=== PATIENT | female | born 1945 | race Caucasian/White ===

== ENCOUNTER → 2016-10-26 | Outpatient (CLI) | payer MEDICARE | END | disposition home or self-care (01) | LOC: GMAJ 12:51 | PROVIDERS: ATTEND Family Medicine | DX: I10 Essential (primary) hypertension (principal); L29.0 Pruritus ani ==

== ENCOUNTER → 2016-11-13 | Outpatient (CLI) | payer MEDICARE ==
--- NOTE | 2016-11-19 00:33 | RAD ---
Two views right hip Reference: March 22, 2016. District: Pain in right hip impression: There is complete joint space loss of the right hip with subchondral sclerosis. No evidence of fracture at this time. The joint space loss has advanced considerably when compared to the prior study from March 22, 2016 compatible with worsening degenerative change. Electronically signed by: Jose East MD 11/13/2016 3:28 PM [facility]
== END | disposition home or self-care (01) ==
LOC: RAD 08:36
PROVIDERS: ATTEND Orthopaedic Surgery
DX: M25.551 Pain in right hip (principal)

== ENCOUNTER → 2017-04-17 | Outpatient (CLI) | payer MEDICARE | END | disposition home or self-care (01) | LOC: NC 12:47 | PROVIDERS: ATTEND Family Medicine | DX: R30.0 Dysuria (principal) ==

== ENCOUNTER → 2017-05-08 | Outpatient (CLI) | payer MEDICARE | END | disposition home or self-care (01) | LOC: NC 09:25 | PROVIDERS: ATTEND Family Medicine | DX: D51.9 Vitamin B12 deficiency anemia, unspecified (principal) ==

== ENCOUNTER → 2017-07-30 | Outpatient (CLI) | payer MEDICARE | END | disposition home or self-care (01) | LOC: GMA 10:42 | PROVIDERS: ATTEND Physician Assistant | DX: N30.00 Acute cystitis without hematuria (principal) ==

== ENCOUNTER 2018-01-12 12:58 | Emergency (ER) | payer MEDICARE ==
[2018-01-12 13:13] VITALS: BP 151/79; TEMP 96.5; O2SAT 95
[2018-01-12] MEDS ORDERED: PENICILLIN BENZATHINE 1.2 MU 1.2 MU/2 ML SYG IM ONE (13:19)
[2018-01-12] MEDS ORDERED: FLUCONAZOLE 150 MG TAB PO ONE (13:19)
[2018-01-12] MEDS ORDERED: SULFA/TRIMETH 800/160 (DS) TAB 1 EA TAB PO ONE (13:19)
--- NOTE | 2018-01-12 13:22 | ED.PDOC ---
History of Present Illness - General Chief Complaint: Skin/Abrasion/Tear Stated Complaint: red,swollen forearm Time Seen by Provider: 01/12/18 13:06 Source: patient Exam Limitations: no limitations - History of Present Illness Initial Comments: the patient is a 72-year-old female presenting to the emergency room secondary to cellulitis to the dorsal aspect of her right forearm that has been present and slightly worsening over the last week. No definite fever. It is uncomfortable to palpation. No abscess to drain. No drainage of any pus. There does not appear to be any deep tissue infection. No hindrance of movement of the joints proximal or distal. She appears to be neurovascularly intact. No rashes in other areas. Timing/Duration: 1 week Severity: moderate Improving Factors: nothing Worsening Factors: nothing Associated Symptoms: denies symptoms Allergies/Adverse Reactions: Allergies NO KNOWN ALLERGY Allergy (Unverified 09/05/12 09:52) Home Medications: Ambulatory Orders Amlodipine Besylate 10 mg PO DAILY 01/18/14 Metoprolol Succinate [Metoprolol Succinate ER] 100 mg PO DAILY 01/18/14 Valsartan-Hydrochlorothiazide [Valsartan/Hydrochlorothia 320-25 mg] 1 tab PO DAILY 01/18/14 Omeprazole [Prilosec] 40 mg PO DAILY 03/22/16 Citalopram Hydrobromide [Celexa] 40 mg PO DAILY 01/12/18 Diclofenac Sodium [Voltaren] 75 mg PO DAILY 01/12/18 Sulfa/Trimeth 800/160 (Ds) Tab [Bactrim DS Tab] 1 ea PO BID #14 tab 01/12/18 Review of Systems - Review of Systems Constitutional: States: no symptoms reported EENTM: States: no symptoms reported Respiratory: States: no symptoms reported Cardiology: States: no symptoms reported Gastrointestinal/Abdominal: States: no symptoms reported Genitourinary: States: no symptoms reported Musculoskeletal: States: no symptoms reported Skin: States: see HPI Neurological: States: no symptoms reported Endocrine: States: no symptoms reported All other Systems: No Change from Baseline Past Medical History (General) - Patient Medical History Hx Congestive Heart Failure: No Hx Hypertension: Yes Hx Diabetes: No Surgical History: Hysterectomy - Vaccination History Hx Influenza Vaccination: Yes Hx Pneumococcal Vaccination: Yes - Social History Hx Tobacco Use: Yes Family Medical History - Family History Mother Family History: Unknown Living Status: Unknown Physical Exam - Physical Exam General Appearance: Alert, Comfortable, No apparent distress Eye Exam: bilateral normal Ears, Nose, Throat: hearing grossly normal, normal ENT inspection Neck: full range of motion, supple Respiratory: no respiratory distress, no accessory muscle use Cardiovascular/Chest: normal peripheral pulses, no edema Peripheral Pulses: radial,right: 2+, radial,left: 2+ Rectal Exam: deferred Back Exam: normal inspection Extremity: no pedal edema, normal capillary refill, other - see history of present illness 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 No evidence of any abscess. No evidence of any sepsis. The patient will be covered for strep with a dose of Bicillin here and she will be placed on Bactrim for the next 7 days to cover for staph as a source. She is also being given one dose of oral Diflucan. She needs to keep herself well-hydrated. She needs to photo document the area daily to make sure that it is improving. She needs to follow up with her primary care doctor towards the end of this week for reevaluation and continuation of antibiotics if needed further. ER warnings were given for any worsening. Departure - Departure Clinical Impression: Erysipelas Disposition: Discharge to Home or Self Care Condition: Fair Departure Forms: ED Discharge - Pt. Copy, Patient Portal Self Enrollment Instructions: DI for Wound Infection Diet: regular diet Activity: increase activity as tolerated Referrals: Sea Schilling MD [Primary Care Provider] - 1-5 Days Prescriptions: Sulfa/Trimeth 800/160 (Ds) Tab [Bactrim DS Tab] 1 ea PO BID #14 tab Home Medications: Ambulatory Orders Amlodipine Besylate 10 mg PO DAILY 01/18/14 Metoprolol Succinate [Metoprolol Succinate ER] 100 mg PO DAILY 01/18/14 Valsartan-Hydrochlorothiazide [Valsartan/Hydrochlorothia 320-25 mg] 1 tab PO DAILY 01/18/14 Omeprazole [Prilosec] 40 mg PO DAILY 03/22/16 Citalopram Hydrobromide [Celexa] 40 mg PO DAILY 01/12/18 Diclofenac Sodium [Voltaren] 75 mg PO DAILY 01/12/18 Sulfa/Trimeth 800/160 (Ds) Tab [Bactrim DS Tab] 1 ea PO BID #14 tab 01/12/18 Additional Instructions: the patient's 72-year-old female emergency room with a week's worth of what appears to be a cellulitis that is clinically most consistent with an erysipela to the dorsal aspect of her right forearm. No evidence of any abscess. No evidence of any sepsis. The patient will be covered for strep with a dose of Bicillin here and she will be placed on Bactrim for the next 7 days to cover for staph as a source. She is also being given one dose of oral Diflucan. She needs to keep herself well-hydrated. She needs to photo document the area daily to make sure that it is improving. She needs to follow up with her primary care doctor towards the end of this week for reevaluation and continuation of antibiotics if needed further. ER warnings were given for any worsening.
[2018-01-12] MEDS ORDERED: FLUCONAZOLE 100 MG TAB ONE (13:24)
== END 2018-01-12 13:49 | disposition home or self-care (01) ==
LOC: ER 12:58
DX: A46 Erysipelas (principal); I10 Essential (primary) hypertension

== ENCOUNTER → 2019-03-11 | Outpatient (CLI) | payer MEDICARE ==
--- NOTE | 2019-03-17 16:28 | MAM ---
EXAM DESCRIPTION: 3D Screening BILATERAL : Digital Mammography. CLINICAL HISTORY: 73 years Female SCREEN . No complaints. No personal or family history of breast cancer. Childbirth. Postmenopausal over 20 years. HRT 5 or more years ago.. Lifetime risk of developing breast cancer (Tyrer-Cuzick model)(%): 4.6. COMPARISON: 2-D digital screening bilateral mammography 06/22/2014 at outside imaging facility. No prior reports available. TECHNIQUE: Bilateral CC and MLO projection full-field images, digital tomosynthesis mammographic technique. Bilateral digital 2-D full-field MLO images. CAD not available for tomosynthesis or 2-D images. FINDINGS: The breast parenchymal density pattern is: Scattered areas of fibroglandular density. No skin thickening or nipple retraction. The most dense fibroglandular tissues are in the retroareolar breast bilaterally. No new focal, stellate mass or density, focal asymmetry , and no suspicious microcalcifications bilaterally. Stable mammograms compared to prior study. Taking into account, differences in mammographic technique. IMPRESSION: Benign exam. BIRAD CATEGORY: 2 BENIGN FINDINGS. RECOMMENDATIONS: FOLLOW UP: Routine digital bilateral mammographic screening, one year interval from February 2019. Written communication explaining the IMPRESSION and follow-up, will be mailed to the patient and referring health care provider. The FINDINGS and the FOLLOW-UP plan were reviewed in person with the patient after the examination. According to the [employer], yearly mammograms are recommended starting at age 40 and continuing as long as a woman is in good health. Any breast change noted on a breast self-exam should be reported promptly to the patient's healthcare provider. Breast MRI is recommended for women with an approximately 20-25% or greater lifetime risk of breast cancer, including women with a strong family history of breast or ovarian cancer and women who have been treated for Hodgkin's disease. A negative mammographic report should not delay tissue diagnosis in patients with significant clinical history or physical findings. Extremely dense breast tissue limits the sensitivity of digital mammography. Electronically signed by: Rubin Spangler MD 03/17/2019 4:26 PM CDT
== END ==
LOC: MAMMO 14:00
PROVIDERS: ATTEND Family Medicine
DX: Z12.31 Encounter for screening mammogram for malignant neoplasm of breast (principal)

== ENCOUNTER 2020-11-02 17:36 | Emergency (ER) | payer MEDICARE ==
[2020-11-02] MEDS ORDERED: hydrALAZINE HCl 20 MG/ML VIAL IV ONE ×2 (17:56→18:58)
--- NOTE | 2020-11-02 18:05 | ED.PDOC ---
History of Present Illness - General Chief Complaint: Blood Pressure Problem Stated Complaint: elevated blood pressure Time Seen by Provider: 11/02/20 17:56 Source: patient, RN notes reviewed, Vital Signs reviewed Exam Limitations: no limitations - History of Present Illness Initial Comments: The patient is a 75 year old with history of hypertension who presents with elevated blood pressures. She has history of labile and difficult to control blood pressure and has been taking metoprolol, olmesartan, catapres at home. She states that she recently stopped taking her nifedipine due to leg swelling and lowered her catapres from 0.2 to 0.1 although she did take a full dose this afternoon. She complains of mild headache, no vision changes, chest pain, or shortness of breath. At home she had blood pressure readings of 256/110. A review of her blood pressure log shows blood pressures elevated over 200 for at least the past three months. No other history is available at this time. Allergies/Adverse Reactions: Allergies NO KNOWN ALLERGY Allergy (Unverified 09/05/12 09:52) Home Medications: Ambulatory Orders Metoprolol Succinate [Metoprolol Succinate ER] 100 mg PO DAILY 01/18/14 Omeprazole [Prilosec] 20 mg PO DAILY 03/22/16 Diclofenac Sodium [Voltaren] 75 mg PO BID 01/12/18 DULoxetine HCL [Cymbalta] 30 mg PO DAILY 11/02/20 Olmesartan Medoxomil 40 mg PO DAILY 11/02/20 cloNIDine HCL [Catapres] 0.2 mg PO TID 11/02/20 hydrALAZINE HCl [(None)] 25 mg PO TID #30 tab 11/02/20 Review of Systems - Review of Systems Constitutional: Denies: chills, fever, malaise, weakness EENTM: Denies: eye pain, blurred vision, double vision Respiratory: Denies: cough, short of breath Cardiology: Denies: chest pain, palpitations Gastrointestinal/Abdominal: Denies: abdominal pain, nausea, vomiting Genitourinary: States: no symptoms reported Musculoskeletal: States: no symptoms reported Skin: States: no symptoms reported Neurological: States: headache. Denies: paresthesia, pre-existing deficit, tingling, weakness Endocrine: States: no symptoms reported Hematologic/Lymphatic: States: no symptoms reported All other Systems: Reviewed and Negative Past Medical History (General) - Patient Medical History Hx Stroke: No Hx Congestive Heart Failure: No Hx Hypertension: Yes Hx Diabetes: No - Vaccination History Hx Influenza Vaccination: Yes Hx Pneumococcal Vaccination: Yes - Social History Hx Tobacco Use: Yes Family Medical History - Family History Mother Family History: Unknown Living Status: Unknown Physical Exam - Physical Exam General Appearance: Alert, Comfortable, No apparent distress Ears, Nose, Throat: hearing grossly normal, normal ENT inspection Neck: non-tender Respiratory: no respiratory distress Cardiovascular/Chest: regular rate, rhythm, no edema Extremity: normal range of motion Neurologic: no motor/sensory deficits, alert, normal mood/affect, oriented x 3 Skin Exam: normal color, warm/dry Progress - Progress Progress: 11/02/20 18:59 Patient reassessed, blood pressure improving. Will order second dose of hydralaz ine. She is complaining of headache. Recommended CT scan which she declined. Discussed risk including missed intracranial hemorrhage. She understands, does not want to proceed at this time. 11/02/20 19:52 Patient reassessed, BP has improved around 15%. Will start low dose hydralazine TID. She has follow up with her PCP in two days and with nephrology next week. Advised her to maintain home blood pressure log and continue outpatient follow up. No evidence for acute hypertensive emergency today, discussed warning signs and return indications. - Results/Orders Results/Orders: Laboratory Results - last 24 hr 11/02/20 11/02/20 18:18 18:18 WBC 9.0 RBC 4.20 Hgb 11.5 L Hct 35.0 L MCV 83.4 MCH 27.3 MCHC 32.7 L RDW 15.4 H Plt Count 276 MPV 7.5 Absolute Neuts (auto) 6.40 Absolute Lymphs (auto) 1.70 Absolute Monos (auto) 0.50 Absolute Eos (auto) 0.20 Absolute Basos (auto) 0.10 Neutrophils % 71.4 Lymphocytes % 19.2 L Monocytes % 5.5 Eosinophils % 2.6 Basophils % 1.3 Sodium 138 Potassium 3.5 L Chloride 103 Carbon Dioxide 24 Anion Gap 14.5 BUN 20 H Creatinine 0.80 BUN/Creatinine Ratio 25.0 H Random Glucose 181 H Serum Osmolality 282.9 Calcium 8.6 Departure - Departure Clinical Impression: Accelerated hypertension Time of Disposition: 19:53 Disposition: Discharge to Home or Self Care Condition: Good Departure Forms: ED Discharge - Pt. Copy, Patient Portal Self Enrollment Instructions: DI for High Blood Pressure, High Blood Pressure Emergencies, Medicines for High Blood Pressure, High Blood Pressure (DC) Diet: low salt diet Activity: increase activity as tolerated Referrals: Sea Schilling MD [Primary Care Provider] - 1-2 Weeks Prescriptions: hydrALAZINE HCl [(None)] 25 mg PO TID #30 tab Home Medications: Ambulatory Orders Metoprolol Succinate [Metoprolol Succinate ER] 100 mg PO DAILY 01/18/14 Omeprazole [Prilosec] 20 mg PO DAILY 03/22/16 Diclofenac Sodium [Voltaren] 75 mg PO BID 01/12/18 DULoxetine HCL [Cymbalta] 30 mg PO DAILY 11/02/20 Olmesartan Medoxomil 40 mg PO DAILY 11/02/20 cloNIDine HCL [Catapres] 0.2 mg PO TID 11/02/20 hydrALAZINE HCl [(None)] 25 mg PO TID #30 tab 11/02/20
[2020-11-02 19:16] VITALS: O2SAT 99
[2020-11-02 20:05] VITALS: BP 164/92; TEMP 97.1
== END 2020-11-02 20:01 | disposition home or self-care (01) ==
LOC: ER 17:36
DX: I10 Essential (primary) hypertension (principal); Z87.891 Personal history of nicotine dependence; Z79.899 Other long term (current) drug therapy
CPT/HCPCS: 36415; 80048; 85025; J0360